=== PATIENT | female | born 1965 | race Two or more races ===

== ENCOUNTER → 2017-12-12 | Emergency (ER) | payer OTHER ==
[~2017-12-12] VITALS: Ht 160 cm; Wt 92.1 kg
[~2017-12-12] MED LIST: ETODOLAC500 MG PO; KETO10TA2 PO; METFORMIN HCL500 MG; ORPH100T PO; SKELAXIN800 MG PO; SYNTHROID75 MCG; ZIAC 5-6.25 MG1 TAB PO
== END | disposition home or self-care (01) ==
LOC: ER 22:55
DX: M54.89 Other dorsalgia (principal)

== ENCOUNTER → 2017-12-12 | Emergency (ER) | payer OTHER ==
[~2017-12-12] VITALS: Ht 157.5 cm; Wt 92.1 kg
== END | disposition home or self-care (01) ==
LOC: ER 11:49
DX: M54.2 Cervicalgia (principal); M54.12 Radiculopathy, cervical region

== ENCOUNTER 2018-11-27 19:50 | Emergency (ER) | payer OTHER ==
[~2018-11-27] VITALS: Ht 160 cm; Wt 90.7 kg
[2018-11-27] MEDS ORDERED: LISINOPRIL20 MG (20:05)
[2018-11-27] MEDS ORDERED: CLONAZEPAM0.5 MG (20:05)
== END 2018-11-27 21:37 | disposition home or self-care (01) ==
LOC: ER 19:50
DX: M54.5 Low back pain (principal)

== ENCOUNTER 2024-09-05 14:51 | Emergency (ER) | payer OTHER ==
[~2024-09-05] VITALS: Ht 160 cm; Wt 77.1 kg
[~2024-09-05 14:51] MED LIST changes: +CLONAZEPAM0.5 MG; +LISINOPRIL20 MG
[2024-09-05] MEDS ORDERED: METFORMIN HCL850 MG (15:37)
[2024-09-05] MEDS ORDERED: ZOCOR20 MG PO (15:37)
[2024-09-05] MEDS ORDERED: KETOROLAC TROMETHAMINE 60 MG VIAL IM STA (17:13)
[2024-09-05] MEDS ORDERED: ORPHENADRINE CITRATE 30 MG/ML AMPUL IM STA (17:14)
[2024-09-05] MEDS ORDERED: DEXAMETHASONE SODIUM PHOSPHATE 4 MG/ML VIAL IM STA (17:14)
[2024-09-05] MEDS ORDERED: OxyCODONE HCL/APAP UD (PERCOCET) PO STA (17:15)
== END 2024-09-05 19:18 | disposition home or self-care (01) ==
LOC: ER 14:52
DX: M54.16 Radiculopathy, lumbar region (principal)